=== PATIENT | male | born 2000 | race Caucasian/White ===

== ENCOUNTER 2022-01-26 16:56 | Emergency (ER) | payer OTHER, SELFPAY ==
[2022-01-26 17:05] VITALS: BP 137/76; PULSE 88; RESP 16; TEMP 36.7; O2SAT 98
--- NOTE | 2022-01-26 17:07 | DI.RAD.S_ITS ---
PROCEDURE: XR KNEE RT 3V INDICATIONS: pain after fall TECHNIQUE: 3 views of the knee were acquired. COMPARISON: None. FINDINGS: Bones: No fractures or dislocations. No suspicious bony lesions. Soft tissues: No joint effusion. No suspicious soft tissue calcifications. IMPRESSION: No acute finding. Dictated by: Pa Negron M.D. on 01/26/2022 at 17:32 Approved by: Pa Negron M.D. on 01/26/2022 at 17:33
[2022-01-26 19:25] VITALS: BP 134/72; PULSE 76; RESP 18; O2SAT 96
[2022-01-26] MEDS: KETOROLAC 10 MG TABLET PO (19:40)
[2022-01-26] MEDS: ACETAMINOPHEN 325 MG TABLET 975 MG PO (19:40)
--- NOTE | 2022-01-26 19:42 | ED.LOWEXIN ---
HPI - Extremity Injury (Lower) <JAYLYN Lewis - Last Filed: 01/26/22 20:04> General Chief Complaint: Extremity Injury, Lower Stated Complaint: Knee injury Time Seen by Provider: 01/26/22 19:08 Source: patient Mode of arrival: Ambulatory History of Present Illness HPI Narrative: This is a pleasant 21-year-old gentleman presents to the emergency department complaining of right knee pain after he had a fall onto his right knee while working with [employer] and complains of clicking and popping sensation to his right knee since this happened. Patient states that he has a bruise and some swelling just below his patella, denies any open wound, denies any weakness, sensation changes or other besides his clicking and popping sensation. He denies any numbness or tingling, denies any prior knee injuries. Review of Systems <JAYLYN Lewis - Last Filed: 01/26/22 20:04> Review of Systems Narrative: Review of systems is negative for acute abnormalities unless otherwise noted in HPI Exam <JAYLYN Lewis - Last Filed: 01/26/22 20:04> Narrative Exam Narrative: Reviewed vitals signs and nursing notes. General: cooperative, comfortable, in no acute distress, well groomed MSK: moves all extremities, neurovascularly intact, no weakness, normal tone patient's right knee with a palpable supra patellar effusion, no tenderness over patellar tendon, Marty's is negative, no increased laxity with varus and valgus testing anterior drawer is negative no tenderness over MCL or LCL. Patient with full range of motion and sensation, no dependent edema. No surrounding erythema Skin: brisk capillary refill, without pallor or erythema Neuro: normal speech and cognition, A&O x3, ambulatory, clear speech Psych: mental status is grossly normal, congruent mood, normal affect, pleasant and cooperative Initial Vital Signs Initial Vital Signs: Vital Signs Temperature 98.1 F 01/26/22 17:05 Pulse Rate 88 01/26/22 17:05 Respiratory Rate 16 01/26/22 17:05 Blood Pressure 137/76 01/26/22 17:05 Pulse Oximetry 98 01/26/22 17:05 Oxygen Delivery Method 01/26/22 17:05 <Tayo Cantu DO - Last Filed: 01/27/22 05:00> Initial Vital Signs Initial Vital Signs: Vital Signs Temperature 98.1 F 01/26/22 17:05 Pulse Rate 88 01/26/22 17:05 Respiratory Rate 16 01/26/22 17:05 Blood Pressure 137/76 01/26/22 17:05 Pulse Oximetry 98 01/26/22 17:05 Oxygen Delivery Method 01/26/22 17:05 Course <JAYLYN Lewis - Last Filed: 01/26/22 20:04> Orders Ordered: Discontinued Medications Acetaminophen (Acetaminophen 325 Mg Tablet) 975 mg PO NOW ONE Stop: 01/26/22 19:35 Last Admin: 01/26/22 19:40 Dose: 975 mg Documented By: RB Ketorolac Tromethamine (Ketorolac 10 Mg Tablet) 10 mg PO NOW ONE Stop: 01/26/22 19:35 Last Admin: 01/26/22 19:40 Dose: 10 mg Documented By: RB Vital Signs Vital signs: Vital Signs - 8 hr 01/26/22 17:05 01/26/22 19:25 Temperature 98.1 F Pulse Rate 88 76 Respiratory Rate 16 18 Blood Pressure 137/76 134/72 Pulse Oximetry 98 96 Oxygen Delivery Method Room Air Room Air <Tayo Cantu DO - Last Filed: 01/27/22 05:00> Orders Ordered: Discontinued Medications Acetaminophen (Acetaminophen 325 Mg Tablet) 975 mg PO NOW ONE Stop: 01/26/22 19:35 Last Admin: 01/26/22 19:40 Dose: 975 mg Documented By: RB Ketorolac Tromethamine (Ketorolac 10 Mg Tablet) 10 mg PO NOW ONE Stop: 01/26/22 19:35 Last Admin: 01/26/22 19:40 Dose: 10 mg Documented By: RB Vital Signs Vital signs: Vital Signs - 8 hr 01/26/22 17:05 01/26/22 19:25 Temperature 98.1 F Pulse Rate 88 76 Respiratory Rate 16 18 Blood Pressure 137/76 134/72 Pulse Oximetry 98 96 Oxygen Delivery Method Room Air Room Air MDM - Extremity Injury (Lower) <JAYLYN Lewis - Last Filed: 01/26/22 20:04> Imaging Data Extremity x-ray #1: Radiologist's Impression: PROCEDURE:? XR KNEE RT 3V ? INDICATIONS:? pain after fall ? TECHNIQUE:? 3 views of the knee were acquired.? ? COMPARISON:? None. ? FINDINGS:? ? Bones:? No fractures or dislocations.? No suspicious bony lesions.? ? Soft tissues:? No joint effusion.? No suspicious soft tissue calcifications.? ? ? IMPRESSION:? No acute finding. ? ? Dictated by: Pa Negron M.D. on 01/26/2022 at 17:32 ? ? Approved by: Pa Negron M.D. on 01/26/2022 at 17:33 ? 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 He has full range of motion of his right knee, a palpable mild effusion, no open wound, no erythema, negative Marty's, ambulatory with steady gait, patient has been wearing a elastic knee immobilizer which has been helping his sensation of stability. He endorses clicking and popping sensation with walking. He has an elevated BMI, discussed a knee immobilizer but opted to use patient's elastic knee immobilizer for his comfort. Discussed treatment of his pain with NSAIDs and Tylenol, encouraged icing, rest. Patient denies any pain with ambulation but states that he walks approximately 2 miles per day, encouraged him to avoid long walks, and to follow-up at [facility] if his pain is ongoing beyond 1-2 weeks. X-rays negative for fracture or dislocation. Patient is appropriate and amenable to discharge home. Vital signs are stable on repeat examination is unremarkable. Patient has been informed of results. Patient has been given strict return to ER precautions for any new or worsening symptoms. Patient understands to follow up closely with outpatient providers as instructed. Patient understands plan and agrees to discharge home. All questions and concerns answered at this time. Discharge Plan Departure Patient Disposition: Home Clinical Impression: Effusion of right knee Right knee injury Qualifiers: Encounter type: initial encounter Qualified Code(s): S89.91XA - Unspecified injury of right lower leg, initial encounter Instructions: DI for Knee Effusion, DI for Knee Pain Activity Restrictions/Additional Instructions: *You have been diagnosed with a knee injury with a palpable effusion, popping and clicking sensation without visible fracture on x-ray or effusion notable on x-ray. Please continue wearing your knee immobilizer until this heals, take ibuprofen 800 mg with food and water every 8 hours, you may take Tylenol 650 mg in addition to this for pain. Please ice your knee a couple times a day. Please follow-up at [facility] if this is not getting better after 1-2 weeks. Try topical Voltaren gel, the generic name is diclofenac or other topical modality of choice. I wish you well, thank you for coming in for evaluation, I hope it feels better soon. *What to do: *Please continue to take your regular medications as directed. [ ] New medication prescriptions sent to your pharmacy: [ ] [ ] New medication written as a paper prescription [ x] No new medications given *Please follow up with your primary care provider in 2-3 days, call for an appointment. Let them know you were seen in the Emergency Department and that we asked that you be seen for follow-up. We will electronically transmit a record of today's note if your PCP is in our system *If you do not have a primary care provider please contact [phone] to establish care with one of [facility] primary care providers. *Return to Emergency Department if you should have any new, worsening, or concerning symptoms, such as [fever greater than 101F, chills, worsening pain, persistent vomiting or other bothersome symptoms]. Referrals: [facility] [Provider Group] Visit Report Forms: Patient Portal/API <Tayo Cantu DO - Last Filed: 01/27/22 05:00> [facility] ED Attending [facility] Attestation: I was immediately available in the department for consultation. This documentation has been reviewed and I agree with assessment and plan. Supervised by Tayo Cantu DO
[2022-01-26 20:02] VITALS: BP 136/76; PULSE 82; RESP 20; O2SAT 98
== END 2022-01-26 20:03 | disposition home or self-care (01) ==
PROVIDERS: Emergency Provider Nurse Practitioner Critical Care Medicine
DX: S80.01XA Contusion of right knee, initial encounter (principal); M25.461 Effusion, right knee; W19.XXXA Unspecified fall, initial encounter
CPT/HCPCS: 73562; 99283